=== PATIENT | male | born 1985 | race Caucasian/White ===

== ENCOUNTER 2020-07-14 22:16 | Observation (INO) | payer BC, SELFPAY ==
--- NOTE | ~2020-07-14 | CT_ITS ---
EXAMINATION: CT abdomen pelvis w con EXAM DATE: 07/14/2020 23:35 INDICATION: RLQ pain TECHNIQUE: Spiral CT of the abdomen and pelvis was performed following intravenous injection of 100 m L Omnipaque 350. Axial, coronal and sagittal images were reviewed. The dose-length product (DLP) fo r this examination was 533.38 mGy-cm. The exposure was tailored according to patient size (auto mA e xposure control), and iterative reconstruction (ASIR) was used as additional dose reduction technique . There is no prior study for comparison. FINDINGS: The liver, spleen, adrenal glands and pancreas are unremarkable. Gallbladder is unremarkab le. No biliary obstruction. Portal and splenic veins are patent. Kidneys enhance symmetrically. T here is no hydronephrosis. The prostate is unremarkable. The bladder is unremarkable. There is no retroperitoneal or pelvic lymphadenopathy. The appendix is severely dilated at 1.6 cm, and filled with fluid. There are appendicoliths. There is adjacent inflammation. No perforation. Acute uncomplicated appendicitis. The stomach and small shana l are unremarkable. There is expected amount of colonic stool. No free intraperitoneal gas. The heart is normal in size. There are no pericardial or pleural effusions. The lung bases are unremark able. There are no osteoblastic or osteolytic lesions identified. IMPRESSION: Acute uncomplicated appendicitis. Reviewed, dictated and finalized at location G. [employer]
[2020-07-14 22:18] VITALS: BP 127/69; PULSE 75; RESP 16; TEMP 36; O2SAT 100
[2020-07-14] MEDS: SODIUM CHLORIDE 0.9% IV 1,000 ML 999 ML IV CONT (22:53)
[2020-07-14] MEDS: MORPHINE SULFATE (*CRX) 4 MG/ML INJ IV PUSH (22:53)
[2020-07-14 23:04] LABS: Basophils Absolute Auto 0.1 K/mm3 (0.0-0.1); Basophils Percent Auto 0.4 % (0.2-1.2); Eosinophils Absolute Auto 0.1 K/mm3 (0-0.3); Eosinophils Percent Auto 0.8 % (0-4.4); Hematocrit 46.8 % (42.0-52.0); Hemoglobin 16.3 g/dL (14.0-18.0); Immature Granulocyte Absolute 0.05 K/mm3 (0.00-0.031); Immature Granulocyte Percent A 0.3 % (0-0.5); Lymphocytes Absolute Auto 2.28 K/mm3 (0.9-3.2); Mean Corpuscular HGB Conc 34.8 g/dl (32-36); Mean Corpuscular Hemoglobin 32.3 pg (26-34); Mean Corpuscular Volume 92.7 fl (80-100); Mean Platelet Volume 9.6 fl (7.4-10.4); Monocytes Absolute Auto 1.1 K/mm3 (0.1-0.6); Monocytes Percent Auto 6.6 % (2.6-8.5); Neutrophils Absolute Auto 12.7 K/mm3 (1.3-6.7); Neutrophils Percent Auto 77.9 % (45.5-73.1); Platelet Count Result 252 k/mm3 (150-375); Red Blood Count 5.05 M/mm3 (4.6-6.20); Red Cell Distribution Width 12.3 % (11.5-14.5); White Blood Count 16.3 K/mm3 (4.5-10.0)
--- NOTE | 2020-07-14 23:07 | ED.ABDPAIN ---
HPI - Abdominal Pain General Chief Complaint: Abdominal Pain Stated Complaint: ABD pain Time Seen by Provider: 07/14/20 22:23 History of Present Illness HPI narrative: Patient is a 34-year-old male who presents ER with abdominal pain. Symptoms began about 5 hours prior to arrival. Began around his umbilicus and has moved down to the right lower quadrant of his abdomen. No aggravating or alleviating factors. No bloating/diarrhea/nausea/vomiting. Symptoms are atypical for him and felt he should be evaluated for appendicitis. Related Data Home Medications Medication Instructions Recorded Confirmed No Home Medications 07/14/20 07/14/20 Allergies Allergy/AdvReac Type Severity Reaction Status Date / Time tetracycline Allergy Hives Verified 07/14/20 22:21 Review of Systems Review of Systems: All systems reviewed & are unremarkable except as noted in HPI and below Constitutional: Constitutional: Denies chills and Denies fever(s) Cardiovascular: Cardiovascular: Denies chest pain, Denies rapid heart rate and Denies radiating jaw, neck or arm pain Respiratory: Respiratory: Denies cough and Denies dyspnea Gastrointestinal: Gastrointestinal: Reports abdominal pain, Denies nausea and Denies vomiting PMFSH Past Medical History Medical History (Updated 07/15/20 @ 03:14 by Lorne Aaron MD) Healthy adult male Surgical History Surgical History (Updated 07/14/20 @ 23:10 by Lorne Aaron MD) No history of previous surgery Social History Social History (Updated 07/14/20 @ 23:10 by Lorne Aaron MD) Smoking status: Never smoker Alcohol intake: never Substance use: never Gender identity (if verbalized by the patient): Male Spiritual care concerns: No Exam Narrative: Exam Narrative: GENERAL: Well-appearing, well-nourished, and in no acute distress. HEAD: Normocephalic, atraumatic. CHEST: Clear to auscultation. No respiratory distress. HEART: Regular rate and rhythm. Normal peripheral pulses. ABDOMEN: Soft, TTP RLQ at McBurney's point w/o guarding, nondistended. EXTREMITIES: Normal range of motion. No edema. SKIN: Warm, dry, no rash. NEURO: Alert and oriented x3. PSYCH: Normal mood and affect. Course Course Emergency Course: Admit to gen surg. [facility] for abx coverage. NPO> Vital Signs Vital signs: Vital Signs Temperature 96.8 F L 07/14/20 22:18 Pulse Rate 75 07/14/20 22:18 Respiratory Rate 16 07/14/20 22:18 Blood Pressure 127/69 07/14/20 22:18 Pulse Oximetry 100 07/14/20 22:18 Temperature 98.1 F 07/15/20 01:19 Pulse Rate 68 07/15/20 01:19 Respiratory Rate 12 07/15/20 01:19 Blood Pressure 126/68 07/15/20 01:19 Pulse Oximetry 100 07/15/20 01:19 MDM - Abdominal Pain Lab Data Result diagrams: 07/14/20 22:56 07/14/20 22:56 Labs: Lab Results 07/14/20 07/14/20 07/14/20 Range/Units 22:56 22:56 22:56 WBC 16.3 H (4.5-10.0) K/mm3 RBC 5.05 (4.6-6.20) M/mm3 Hgb 16.3 (14.0-18.0) g/dL Hct 46.8 (42.0-52.0) % MCV 92.7 (80-100) fl MCH 32.3 (26-34) pg MCHC 34.8 (32-36) g/dl RDW 12.3 (11.5-14.5) % Plt Count 252 (150-375) k/mm3 MPV 9.6 (7.4-10.4) fl Immature Gran % (Auto) 0.3 (0-0.5) % Neut % (Auto) 77.9 H (45.5-73.1) % Lymph % (Auto) 14.0 L (18.3-44.2) % [place] % (Auto) 6.6 (2.6-8.5) % Eos % (Auto) 0.8 (0-4.4) % Baso % (Auto) 0.4 (0.2-1.2) % Lymph # (Auto) 2.28 (0.9-3.2) K/mm3 [place] # (Auto) 1.1 H (0.1-0.6) K/mm3 Eos # (Auto) 0.1 (0-0.3) K/mm3 Baso # (Auto) 0.1 (0.0-0.1) K/mm3 Abs Immat Gran (auto) 0.05 H (0.00-0.031) K/mm3 Absolute Neuts (auto) 12.7 H (1.3-6.7) K/mm3 Absolute Nucleated RBC 0.0 (0.0-0.012) K/mm3 Nucleated RBC % 0.0 (0.0-0.2) % PT 13.2 (11.1-14.7) Seconds INR 0.9 APTT 26.8 (22.3-36.8) SECONDS Sodium 138 (137-145) mmol/L Potassium 3.4 (3.4-5.0) mmol/L Chlor[place]
[2020-07-14 23:14] LABS: INR 0.9; Prothrombin Time 13.2 Seconds (11.1-14.7)
[2020-07-14 23:15] LABS: Partial Thromboplastin Time 26.8 SECONDS (22.3-36.8)
[2020-07-14 23:16] LABS: Alanine Aminotransferase 23 U/L (4-50); Albumin Level 4.7 g/dL (3.5-5.1); Alkaline Phosphatase 54 U/L (38-126); Anion Gap 5 mmol/L (8-16); Aspartate Amino Transferase 30 U/L (17-59); Bilirubin,Total 0.7 mg/dL (0.2-1.3); Blood Urea Nitrogen 18 mg/dL (9-20); Calcium 9.8 mg/dL (8.4-10.2); Carbon Dioxide 36 mmol/L (22-30); Chloride 97 mmol/L (98-107); Estimated CRCL calculation 89 ml/min; Estimated Glomerular Filt Rate > 60; Glucose 107 mg/dL (75-110); Lipase 62 U/L (23-300); Potassium 3.4 mmol/L (3.4-5.0); Sodium 138 mmol/L (137-145)
[2020-07-15] VITALS (11 sets, daily range): BP systolic 112–148; BP diastolic 53–92; PULSE 61–88; RESP 12–18; TEMP 36.2–37.3; O2SAT 98–100; BMI 26.2
[2020-07-15] MEDS: MORPHINE SULFATE (*CRX) 4 MG/ML INJ IV PUSH ×2 (00:19→05:46)
[2020-07-15] MEDS: SODIUM CHLORIDE 0.9% IV 1,000 ML 125 ML IV CONT ×2 (01:24→10:02)
--- NOTE | 2020-07-15 02:00 | ADMGEN ---
This patient, Scott Neville, was admitted to Medical Room 341-01. Patient/family oriented to hospital policies and general routines including ID bracelet, bed and alarms, visiting hours, pain management, procedures, bathroom and other care routines, personal items, smoking policy, room service/diet, and visiting hours. Information on how to activate the Rapid Response Team has been discussed. Patient/Family are encouraged to report perceived risks to care and to ask questions if they do not understand what they are told or what they should do.
[2020-07-15 08:00] LABS: Add Urine Microscopic? YES; Appearance Urine Clear (Clear); Bilirubin Urine Negative (Negative); Blood Urine Negative (Negative); Color Urine Yellow (Yellow); Glucose Urine UA Negative (Negative); Ketones Urine 1+ mg/dL (Negative); Leukocyte Esterase Ur Negative LEU/UL (Negative); Mucus Urine Rare /lpf; Nitrate Urine Negative (Negative); Protein Urine Negative (Negative); Urobilinogen Urine Negative mg/dL (<2.0); WBC Urine 0-3 /hpf
--- NOTE | 2020-07-15 09:30 | PM.IMHP ---
H&P: HPI History of Present Illness Date/Time: 07/15/20 09:30 Che Complaint: Abdominal pain Narrative: Scott Neville is a 34 year old male who presented to the emergency department with complaints of right lower quadrant abdominal pain. The patient reports a sudden onset periumbilical pain around 5:00 p.m. last night. The abdominal pain continued to worsen and eventually localized to the right lower quadrant. He reports associated chills, but no fever. Due to the continuous abdominal pain, he presented to the emergency department for further evaluation. CT scan of the abdomen and pelvis showed acute uncomplicated appendicitis with an appendix severely dilated at 1.6 cm with adjacent inflammation, fluid-filled, and with appendicoliths. No evidence of perforation. Labs revealed leukocytosis with a white blood cell count of 16,300. The ED physician consulted our service for surgical evaluation of acute appendicitis. He was started on IV antibiotics, IV fluids, analgesics, and made NPO. The patient is now being seen on medical floor. He reports having very minimal right lower quadrant abdominal pain. The pain intensifies with movement or palpation, but he is fairly comfortable at rest. No nausea, vomiting, or chills now. He reports feeling constipated the day prior to admission. No other complaints at this time. Review of Systems Constitutional: Constitutional: Reports as per HPI, Reports chills, Denies excessive sweating, Denies fatigue, Denies fever(s), Denies headache(s) and Denies weakness Eyes: Eyes: Denies change in vision and Denies loss of vision ENT: Reports Normal hearing present, Denies dizziness and Denies headache(s) Cardiovascular: Cardiovascular: Denies chest pain, Denies syncope, Denies leg edema, Denies lightheadedness, Denies radiating jaw, neck or arm pain and Denies dyspnea Respiratory: Respiratory: Denies cough, Denies dyspnea and Denies wheezing Gastrointestinal: Gastrointestinal: Reports as per HPI, Reports abdominal pain, Denies hematochezia, Denies tenesmus, Reports constipation, Denies GI cramping, Denies diarrhea, Denies nausea, Denies odynophagia and Denies vomiting Genitourinary: Genitourinary: Reports no additional male genitourinary complaints and Denies dysuria Musculoskeletal: Musculoskeletal: Denies deformity, Denies joint swelling, Denies radiating pain into limb and Denies tingling Integumentary/Breasts: Skin/Breast: Denies pruritus, Denies wounds and Denies jaundice Neurologic: Reports Normal hearing present, Denies confusion, Denies dizziness, Denies syncope, Denies headache(s), Denies loss of vision, Denies tingling, Denies tremor(s) and Denies weakness Psychiatric: Psychiatric: Denies anxiety, Denies confusion and Denies depression Endocrine: Endocrine: Denies cold intolerance, Denies excessive sweating, Denies fatigue and Denies heat intolerance [facility] Past Medical History Medical History (Updated 07/15/20 @ 09:53 by MARCO A Porter) Healthy adult male Surgical History Surgical History History of hernia repair Inguinal hernia repair at age 2-3. Family History Family History Other No family history of disorders Social History Social History Social History: The patient lives at home with his . He has no children. Wishes to be a full code. Designates his , Charisse, to be his medical decision maker if needed. Smoking status: Never smoker Alcohol intake: current Drinks per week: 6 Substance use: never Living arrangements: with family Occupation/Education: occupation Additional occupation/education comments: Currently working from home due to the COVID pandemic. Works in [employer]. Gender identity (if verbalized by the patient): Male Sexual Orientation (if Verbalized by the Patien
--- NOTE | 2020-07-15 14:05 | PC.NURSE ---
Patient to pre-op via bed.
--- NOTE | 2020-07-15 14:36 | WPDANESEPPF ---
Anes - Initial Pre Proc Eval Procedure: Operation Date: 07/15/20 16:00 Proposed Procedures p Laparoscopic Appendectomy - Juan Luis Huerta MD Date/Time: 07/15/20 14:36 Surgeon: Juan Luis Huerta MD Pre Op Diagnosis: appendicitis Patient Data Age: 34 Gender: M Height: 1.85 m Weight: 90.3 kg Last Vital Signs Temp 36.6 C 07/15/20 05:58 Pulse 88 07/15/20 05:58 Resp 12 07/15/20 05:58 BP 120/53 L 07/15/20 05:58 Pulse Ox 100 07/15/20 05:58 Allergies Allergy/AdvReac Type Severity Reaction Status Date / Time tetracycline Allergy Hives Verified 07/14/20 22:21 Home Medications Medication Instructions Recorded Confirmed Type No Home Medications 07/14/20 07/14/20 History Laboratory Tests 07/14/20 07/14/20 07/14/20 22:56 22:56 22:56 WBC 16.3 K/mm3 H K/mm3 (4.5-10.0) RBC 5.05 M/mm3 M/mm3 (4.6-6.20) Hgb 16.3 g/dL g/dL (14.0-18.0) Hct 46.8 % % (42.0-52.0) MCV 92.7 fl fl (80-100) MCH 32.3 pg pg (26-34) MCHC 34.8 g/dl g/dl (32-36) RDW 12.3 % % (11.5-14.5) Plt Count 252 k/mm3 k/mm3 (150-375) MPV 9.6 fl fl (7.4-10.4) Immature Gran % (Auto) 0.3 % % (0-0.5) Neut % (Auto) 77.9 % H % (45.5-73.1) Lymph % (Auto) 14.0 % L % (18.3-44.2) [place] % (Auto) 6.6 % % (2.6-8.5) Eos % (Auto) 0.8 % % (0-4.4) Baso % (Auto) 0.4 % % (0.2-1.2) Lymph # (Auto) 2.28 K/mm3 K/mm3 (0.9-3.2) [place] # (Auto) 1.1 K/mm3 H K/mm3 (0.1-0.6) Eos # (Auto) 0.1 K/mm3 K/mm3 (0-0.3) Baso # (Auto) 0.1 K/mm3 K/mm3 (0.0-0.1) Abs Immat Gran (auto) 0.05 K/mm3 H K/mm3 (0.00-0.031) Absolute Neuts (auto) 12.7 K/mm3 H K/mm3 (1.3-6.7) Absolute Nucleated RBC 0.0 K/mm3 K/mm3 (0.0-0.012) Nucleated RBC % 0.0 % % (0.0-0.2) PT 13.2 Seconds Seconds (11.1-14.7) INR 0.9 APTT 26.8 SECONDS SECONDS (22.3-36.8) Sodium 138 mmol/L mmol/L (137-145) Potassium 3.4 mmol/L mmol/L (3.4-5.0) Chloride 97 mmol/L L mmol/L (98-107) Carbon Dioxide 36 mmol/L H mmol/L (22-30) Anion Gap 5 mmol/L L mmol/L (8-16) BUN 18 mg/dL mg/dL (9-20) Creatinine 1.20 mg/dL mg/dL (0.7-1.3) Estim Creat Clear Calc 89 ml/min ml/min Estimated GFR > 60 (59 - ) Glucose 107 mg/dL mg/dL (75-110) Calcium 9.8 mg/dL mg/dL (8.4-10.2) Total Bilirubin 0.7 mg/dL mg/dL (0.2-1.3) AST 30 U/L U/L (17-59) ALT 23 U/L U/L (4-50) Alkaline Phosphatase 54 U/L U/L (38-126) Total Protein 8.0 g/dL g/dL (6.3-8.2) Albumin 4.7 g/dL g/dL (3.5-5.1) Lipase 62 U/L U/L (23-300) Urine Color Urine Appearance Urine pH Ur Specific [place] Urine Protein Urine Glucose (UA) Urine Ketones Ur Blood (Man) Urine Nitrate Urine Bilirubin Urine Urobilinogen Leukocyte Esterase Rfl Urine WBC Urine Mucus 07/15/20 07:47 WBC RBC Hgb Hct MCV MCH MCHC RDW Plt Count MPV Immature Gran % (Auto) Neut % (Auto) Lymph % (Auto) [place] % (Auto) Eos % (Auto) Baso % (Auto) Lymph # (Auto) [place] # (Auto) Eos # (Auto) Baso # (Auto) Abs Immat Gran (auto) Absolute Neuts (auto) Absolute Nucleated RBC Nucleated RBC % PT INR APTT Sodium Potassium Chloride Carbon Dioxide Anion Gap BUN Creatinine Estim Creat Clear Calc Estimated GFR
[2020-07-15] MEDS: LACTATED RINGERS 1,000 ML 30 ML IV CONT ×2 (14:45→17:55)
--- NOTE | 2020-07-15 14:56 | SUR.PREOP ---
pt updated for approximate time of surgery.1600
--- NOTE | 2020-07-15 15:19 | WPDHPUPDATE1 ---
History and Physical Update Update Date/Time: 07/15/20 15:19 History and Physical has been reviewed, including an updated exam of the patient. There are NO changes in the patient's condition. Risks, benefits, and alternatives have been discussed and questions answered. Patient agrees to proceed with procedure.
[2020-07-15] MEDS: BUPIVACAINE/EPINEPHRINE 0.25% 10 ML VIAL 30 ML INFILTRATE (16:27)
--- NOTE | 2020-07-15 17:12 | PM.PROC ---
Procedure Note - Detailed Date of procedure: 07/15/20 Pre-op diagnosis: appendicitis Acute uncomplicated appendicitis. Post-op diagnosis: same Procedure performed: Laparoscopic Appendectomy Description of procedure: The patient was seen again in the Holding Room. The risks, benefits, complications, treatment options, and expected outcomes were discussed with the patient and/or family. The possibilities of reaction to medication, pulmonary aspiration, perforation of viscus, bleeding, recurrent infection, finding a normal appendix, the need for additional procedures, failure to diagnose a condition, and creating a complication requiring transfusion or operation were discussed. There was concurrence with the proposed plan and informed consent was obtained. The site of surgery was properly noted/marked. The patient was taken to Operating Room, and a time out was preformed which identified this as the proper patient, and the procedure verified as laparoscopic appendectomy, possible open. The patient was placed in the supine position and general anesthesia was induced, along with placement of orogastric tube, SCD hose, and a Cain catheter. The abdomen was prepped and draped in a sterile fashion. A 5 mm umbilical incision was made and the peritoneal cavity was accessed using the Veress needle technique. Once the abdomen was insufflated to 14 mmHg pressure a 5 mm XL trocar over the 0? 5 mm scope was carefully twisted into the abdomen via the umbilicus. The pneumoperitoneum was then established to steady pressure of 14 mm Hg. A 12 mm laparoscopic port was placed through a transverse suprapubic incision. An additional 5 mm cannula was then placed in the left upper quadrant of the abdomen at a level of the umbilicus and approximately 6 cm off the midline under direct vision. A careful evaluation of the entire abdomen was carried out. The patient was placed in Trendelenburg and left lateral decubitus position. The small intestines were retracted in the cephalad and left lateral direction away from the pelvis and right lower quadrant. Was noted to be yellowish cloudy fluid both in the pelvis and along the right colic gutter so a suction workers' compensation hearings officer was open and we suctioned away and all of this fluid and irrigated about 100 cc of fluid in the pelvis and suctioned that of way. The patient was found to have an enlarged and inflamed appendix that was extending [into the right side of the lower abdomen above the level of the pelvic brim. It was surrounded by omentum on 1 side which would mild was mildly adherent and then adherent to the side of 1 loop of small bowel.. There was no evidence of perforation. The appendix was carefully dissected. Once it was free a 45 mm ethicon endogastroentestinal stapler with a vascular load was placed across the mesoappendix. This was fired and hemostasis was checked along the staple line and appeared to be adequate. For this patient, this divided the entire mesoappendix and we were able to proceed immediately to stapling off the appendix at it's junction with the cecum. The appendix was then divided at its base using the same 45 mm stapler with a 3.5 mm bowel wall load. Minimal appendiceal stump was left in place. There was no evidence of bleeding, leakage, or complication after division of the appendix at its junction with the cecum.. The appendix was then placed in an endobag which had been brought through the 12 mm suprapubic port site. The appendix and the bag were then extracted through this larger port site in the suprapubic position. The suprapubic port site was closed using a #1 Polysorb suture passed with a Francisco-Chowdhury cone and needle suture passer. After this was tied using a S retractor I could see some fascia that could be approximated externally under the subcutaneous fat and using a standard needle curry externally through the an incision at the level of the fascia I placed 1 more simple suture of 0 Vicryl. The trocar site ski
[2020-07-15] MEDS: fentaNYL CITRATE INJ (*CRX) 100 MCG/2 ML VIAL 25 MCG IV PUSH (17:52)
--- NOTE | 2020-07-15 18:24 | PC.NURSE ---
Patient returned from post-op via bed. Patient alert and oriented to room.
--- NOTE | 2020-08-07 11:09 | PM.DS ---
DS: Admitting Diagnosis Admitting Diagnosis Admitting Diagnosis: Acute uncomplicated appendicitis DS: Discharge Diagnosis Discharge Diagnosis (1) Appendicitis: Qualifiers: Appendicitis abscess presence: without abscess Appendicitis perforation presence: without perforation Appendicitis type: acute appendicitis Code(s): K37 - Unspecified appendicitis Status: Acute DS: Summary Hospital Course Reason for hospitalization: acute uncomplicated appendicitis Hospital Course: The patient had an eventful hospital course. He was admitted as a 23 hour observation for surgery. He underwent uncomplicated laparoscopic appendectomy and was able to be discharged from the outpatient area in near surgery. He will be followed up in the office in 10-14 days. Home going instructions given please see list below. Time spent discussing smoking cessation with patient: 3 to 10 minutes Status at Discharge Cognitive/behavioral status at discharge: Normal Functional status at discharge: independent ambulation Time Spent with Patient Time attestation: Total time spent providing and/or coordinating discharge services: Time spent: Less than 30 minutes Specific discharge activities: may shower May walk as much as he feels comfortable Limit strenuous activity with the abdominal muscles for 2 weeks. Exam Const: General: cooperative, no acute distress, alert and awake Orientation/consciousness: patient oriented x3 HENMT: Mouth: Yes moist mucous membranes Neck: Neck: normal visual inspection Chest: Chest palpation & inspection: normal inspection of the chest Resp: Effort & Inspection: normal respiratory effort Auscultation: clear to auscultation bilaterally Cardio: Jugular venous distension: no JVD Rate: regular rate Rhythm: regular rhythm GI: Rectal Exam: deferred Other: incisions consistent with laparoscopic appendectomy Neuro: General: patient oriented x3 and moves all extremities Speech: normal speech Extrem: General: normal exam except as noted Psych: Mental Status: mental status grossly normal Speech and movement: Normal speech and movement present Affect: normal affect Thought content: Yes Normal thought content present DS: Data Data Completed and Pending Completed studies during hospitalization: Pending at discharge 07/15/20 16:17 Surgical [PTH] Routine Discharge Plan Discharge Attending physician on discharge: Juan Luis Huerta Consulting providers: Alejandra Brown ; Delfin Ramirez Discharging Clinician: Juan Luis Huerta Anticipated Discharge Date/Time: 07/15/20 19:30 Patient Disposition: Home, Self-Care Activity: may shower Diet: as tolerated Wound Care Instructions: incision open to air Discharge Instructions: DISCHARGE INSTRUCTION SHEET FOR LAPAROSCOPIC APPENDIX SURGERIES DR. HUERTA PATIENT TO TAKE HOME 1. May shower the day after surgery over incisions. Do not submerge in water x 2weeks. 2. Call office for: Wound increasingly painful or bleeding Vomiting Fever of greater than 101 degrees 3. Expect some blood on dressing and old blood on skin. 4. If no bowel movement for three days, take 1 oz. (30 ml) Milk of Magnesia, if no results, take Fleets enema. May take an over the counter stool softener daily. 5. No heavy lifting > 10-15 pounds x 2 weeks for laparoscopic appendectomy. 6. No driving for 3 days or while taking narcotic pain medications. 7. Up walking 10-30 minutes three times per day. 8. Call the office to schedule a follow-up appointment in 2 weeks. 9. Oral pain medications prescription to be sent to pharmacy. May transition to Tylenol 500mg by mouth every 6 hours as needed for pain once your pain becomes mild and is not requiring the narcotics. 10. NUTRITION: Start out by drinking fluids and increase your diet as tolerated. If you experience nausea, try dry to
== END 2020-07-15 20:20 | disposition home or self-care (01) ==
LOC: ANHED 07-15 00:26 → ANH3MED 07-15 03:14
PROVIDERS: Admitting Provider Surgery; Emergency Provider Emergency Medicine; PCP Student in an Organized Health Care Education/Training Program; Visit Provider Surgery
PROC: 0DTJ4ZZ Resection of Appendix, Percutaneous Endoscopic Approach (ICD-10-PCS; CPT 44970; principal; 2020-07-15 16:00)
DX: R10.31 Right lower quadrant pain (principal); K35.80 Unspecified acute appendicitis
CPT/HCPCS: 44970; 36415; 74177; 80053; 81001; 83690; 85025; 85610; 85730; 88304; 96361; 96365; 96367; 96375; 96376; 99285; G0378; J0131; J0330; J1100; J2250; J2270; J2405; J2543; J2704; J2710; J3010; J7030; J7120; Q9967